=== PATIENT | male | born 1995 | race Caucasian/White ===

== ENCOUNTER 2017-04-20 21:18 | Inpatient (IN) | payer OTHER ==
--- NOTE | 2017-04-20 21:54 | EDPHY ---
H & P Stated Complaint: suicidal, cut left wrist, took 4-8 clonazepam @ 1700 - Personal History Current Tetanus/Diphtheria Vaccine: Yes Current Tetanus Diphtheria and Acellular Pertussis (TDAP): Yes - Medical/Surgical History Hx Asthma: No Hx Chronic Respiratory Disease: No Hx Diabetes: No Hx Cardiac Disease: No Hx Renal Disease: No Hx Cirrhosis: No Hx Alcoholism: No Hx HIV/AIDS: No Hx Splenectomy or Spleen Trauma: No Other PMH: hypothyroid, anxiety - Social History Smoking Status: Former smoker Time Seen by Provider: 04/20/17 21:46 HPI/ROS: CHIEF COMPLAINT: M1 HISTORY OF PRESENT ILLNESS: 21-year-old male arrives via ambulance after police were dispatched to our report of him being intoxicated, 8 stated that he has taken several Klonopin tablets of well and had lacerated his wrist in a suicide attempt. When I interview the patient he states to me "I'm just a god damned mess, let me ." Denies hallucination. REVIEW OF SYSTEMS: A ten point review of systems was performed and is negative with the exception of the items mentioned in the HPI PAST MEDICAL & SURGICAL HISTORY: self-described history of depression SOCIAL HISTORY: admits to positive alcohol use PHYSICAL EXAM (Prior to examination, patient consented to physical exam, hands were washed and my usual and customary physical exam procedures followed) 1) GENERAL: Well-developed, well-nourished, somnolent, . Appears to be in no acute distress. 2) HEAD: Normocephalic, atraumatic 3) HEENT: pinpoint pupils bilaterally . Sclera anicteric. 4) NECK: Full range of motion, no meningeal signs. 5) LUNGS: Clear auscultation bilaterally, no wheezes, no rhonchi, no retractions. 6) HEART: Regular rate and rhythm, no murmur, no heave, no gallop. 7) ABDOMEN: No guarding, no rebound, no focal tenderness, negative McBurney's, negative James's, negative Rovsing's, negative peritoneal sign, 8) MUSCULOSKELETAL: Left wrist volar aspect multiple superficial abrasions, no lacerations requiring closure. Neurovascularly intact distally. Otherwise, Moving all extremities, no focal areas of tenderness, no obvious trauma. No peripheral edema or discoloration. 9) BACK: No CVA tenderness, no midline vertebral tenderness, no fluctuance, no step-off, no obvious trauma, no visual or palpable abnormality. 10) SKIN: No rash, no petechiae. 11) Psychiatric: Patient is oriented X 3, there is no agitation. DIFFERENTIAL DIAGNOSIS: in no particular include but limited to depression, suicidal ideation, homicidal ideation (Marj,Elisa Vianey) Constitutional: Initial Vital Signs Temperature (C) 36.6 C 04/20/17 21:35 Heart Rate 115 H 04/20/17 21:35 Respiratory Rate 16 04/20/17 21:35 Blood Pressure 133/95 H 04/20/17 21:35 O2 Sat (%) 98 04/20/17 21:35 O2 Delivery Mode Room Air Allergies/Adverse Reactions: methimazole Allergy (Verified 04/21/17 09:23) Other-Enter Comments antibio Allergy (Uncoded 04/20/17 21:41) Home Medications: Medication Instructions Recorded Levothyroxine [Synthroid 175 mcg 175 mcg PO DAILY06 04/21/17 (*)] Melatonin [Melatonin 3 MG (*)] 3 mg PO HS PRN 04/21/17 clonazePAM [Klonopin (*)] 0.5 mg PO DAILY PRN 04/21/17 Medical Decision Making ED Course/Re-evaluation: 0005 care assumed by me from SANJAY triplett pending placement. [address] Gonzales pending placement. No issues during my care overnight. (Austen Rangel) I assumed care of this patient from Dr. Rangel at 7:05 a.m.. Shortly thereafter I was contacted by the mental health team and informed that the patient is being transferred to [address] [place] [address]. I have completed the EMTALA form. Time of transfer not yet available. (Destiney Gonzales) - Data Points Laboratory Results: Laboratory Results 04/20/17 21:44 04/20/17 21:44 Medications Given: Levothyroxine Sodium (Synthroid) 175 mcg PO DAILY AT 6AM TAWNY Stop: 10/18/17 04:59 Last Admin: 04/21/17 06:49 Dose: Not Given Departure - Departure Disposition: [facility] IP Clinical Impression: Suicidal ideation Condition: Good
[2017-04-20 22:02] LABS: % IMMATURE GRANULYOCYTES 0.2 % (0.0-1.1); ABSOLUTE IMMATURE GRANULOCYTES 0.01 10^3/uL (0.00-0.10); ADD DIFF? NO; ADD MORPH? NO; ADD SCAN? NO; ATYPICAL LYMPHOCYTE FLAG 10 (0-99); FRAGMENT RBC FLAG 0 (0-99); HEMATOCRIT 49.9 % (40.0-51.0); HEMOGLOBIN 17.5 g/dL (13.7-17.5); LEFT SHIFT FLG 0 (0-99); LIPEMIA HEMOLYSIS FLAG 90 (0-99); MEAN CELL HEMOGLOBIN CONCENTR. 35.1 g/dL (32.4-36.7); MEAN CELL VOLUME 88.3 fL (81.5-99.8); MEAN PLATELET VOLUME 9.8 fL (8.7-11.7); PLATELET CLUMPS FLAG 0 (0-99); PLATELET COUNT 178 10^3/uL (150-400); RED BLOOD CELL COUNT 5.65 10^6/uL (4.40-6.38); RED CELL DISTRIBUTION WIDTH 12.5 % (11.5-15.2)
[2017-04-20 22:27] LABS: ANION GAP 19 mEq/L (8-16); CALCIUM 10.7 mg/dL (8.5-10.4); CARBON DIOXIDE 21 mEq/l (22-31); CHLORIDE 103 mEq/L (97-110); CREATININE 0.8 mg/dL (0.7-1.3); ETHANOL SERUM 142 mg/dL (0-10); GLOMERULAR FILTRATION RATE > 60; GLUCOSE 72 mg/dL (70-100); SALICYLATE < 1.0 mg/dL (2.0-20.0); SODIUM 143 mEq/L (134-144)
[2017-04-21] MEDS: LEVOTHYROXINE 175 MCG TAB PO SCH ×2 (06:48→06:49)
[2017-04-21] MEDS ORDERED: OLANZapine DISINTEGR 10 MG TAB PO PRN (12:50)
[2017-04-21] MEDS ORDERED: MAG HYDROX/AL HYDROX/SIMETH 30 ML UDCUP PO PRN (12:50)
[2017-04-21] MEDS ORDERED: MAGNESIUM HYDROXIDE 30 ML UDCUP PO PRN (12:50)
[2017-04-21] MEDS ORDERED: LORazepam 0.5 MG TAB PO PRN (12:50)
[2017-04-21] MEDS ORDERED: ZOLPIDEM TARTRATE 5 MG TAB PO PRN (14:28)
[2017-04-21] MEDS ORDERED: hydrOXYzine HCL 25 MG TAB PO PRN (14:29)
--- NOTE | 2017-04-21 15:09 | BCON ---
[f rep st] [facility] CONSULTATION INTERNAL MEDICINE CONSULT DATE OF CONSULTATION: 04/21/2017 REFERRING PHYSICIAN: Mukund Flores MD REASON FOR REFERRAL: Medical clearance for Inpatient [facility] stay. HISTORY OF PRESENT ILLNESS: This patient was brought to the emergency department by police. He was found intoxicated. He had superficial lacerations on his wrist, and he had taken overdose of clonazepam. He was evaluated in the emergency department and transferred to Inpatient [facility] for further psychiatric care. He currently is without any acute complaints. PAST MEDICAL HISTORY: 1. Hypothyroidism, status post radioactive ablation for hyperthyroidism. 2. Autoimmune atrophic gastritis. PAST SURGICAL HISTORY: He reports he has had a mole removal. SOCIAL HISTORY: He lives alone. He has been a student, but it is unclear whether or not he is currently in school. He is not working. He is a nonsmoker. He uses alcohol. FAMILY HISTORY: He reports a family history of thyroid disease. REVIEW OF SYSTEMS: He denies any signs or symptoms of alcohol withdrawal. Specifically, he denies sweats or shakes. He says he has a headache. He denies fevers or chills, cough, dyspnea, nausea, vomiting, constipation or diarrhea. He reports he has had weight loss over the last several months. He denies dysuria or urinary frequency. He denies joint swelling or joint pain. He denies skin rash or skin breakdown. Otherwise, a 10-point review of systems is negative. PHYSICAL EXAM: VITAL SIGNS: Blood pressure is 143/62, pulse is 87, respiratory rate is 15, oxygen saturation is 100% on room air, temperature is 36.8 degrees centigrade. His weight is 72.6 kg for a body mass index of 23. GENERAL: This is a well-nourished, well-developed man, appears his chronologic age, cooperative and in no acute distress. HEENT: Extraocular movements are intact. Pupils are round and reactive to light. He has mild exophthalmos. Mucous membranes are moist. Dentition is in good condition. NECK: Supple. HEART: There is a regular rate and rhythm with no murmurs, rubs or gallops. LUNGS: Clear to auscultation bilaterally. ABDOMEN: Soft, nontender, nondistended; with normoactive bowel sounds. EXTREMITIES: There is no cyanosis , clubbing or edema. NEUROLOGIC: He is alert and oriented x3. Cranial nerves 2-12 are grossly intact. There is no focal weakness. Sensation is intact to light touch, and gait is within normal limits. LABORATORY STUDIES: Drawn in the emergency department: CBC was completely within normal limits. Serum chemistry revealed a low carbon dioxide and an anion gap of 19, which was likely due to alcohol intoxication. His calcium was slightly elevated at 10.7. His TSH was normal at 2.05. Toxicology screen in the serum was negative for salicylates and acetaminophen. Ethyl alcohol level was elevated at 142 mg/dL. Urine toxicology screen was negative for substances of abuse. ASSESSMENT AND RECOMMENDATIONS: 1. Mental health issues. Pending further evaluation and management per Psychiatry and the mental health team. 2. Hypothyroidism. With a normal thyroid stimulating hormone and no signs or symptoms of hyperthyroidism or hypothyroidism at present. 3. Autoimmune atrophic gastritis. He reports that he is on a high dose of levothyroxine because of difficulties with absorption of the medication due to the gastritis. This may also be involved in his recent weight loss. He may have achlorhydria, and this should be taken into account in terms of psychiatric medications and whether they require an acid environment in the stomach to be adequately absorbed. Otherwise, he should have surveillance endoscopy in the future because of the risk of transformation to gastric carcinoma, which is approximately 1% to 3%. 4. Elevated blood pressure. This is an isolated finding. He has had several blood pressure determinations. Advised continuing to monitor blood pressure and query whether he has a low level of alcohol withdrawal. 5. Alcohol use disorder. He may benefit from specific substance abuse counseling. 6. Superficial lacerations. These will heal, and there is no intervention necessary. I see no medical contraindications to this patient's continued stay in the Inpatient Behavioral Health Unit or to any psychiatric medications or procedures. Thank you very much for including me in the care of this patient, and please do not hesitate to contact me or the hospitalist service should there be need for further medical evaluation. /[id number]/MODL MTDD
--- NOTE | 2017-04-21 15:29 | BAPA ---
[f rep st] ADMISSION PSYCHIATRIC ASSESSMENT DATE OF SERVICE: 04/21/2017 CHIEF COMPLAINT: The patient is a 21-year-old male whose chief complaint to me today is, "I do not completely remember." HISTORY OF PRESENT ILLNESS: The patient is a 21-year-old male, who tells me this is his 1st psychiatric hospital stay. He took an overdose of Klonopin and cut on his wrist in a suicide attempt. At this point in time, we have minimal collateral information. We believe that Mr. Hunt was at his home, and his roommates called emergency services workers, and the police arrived, took him to the local emergency room on a 72-hour mental health hold for an evaluation. He was evaluated and thought to be appropriate for admission to the inpatient psychiatric unit. He admits to me, "I took some of my anxiety medication." This was mainly clonazepam. He also drank alcohol while he was taking this benzodiazepine. He is not able to tell me why he was trying to kill himself. He does admit, "I was feeling crappy all day." He has had some recent stressors. He is from [place], but living in [place] and was attending the [employer]. He relates that he had to withdraw from the [employer] because of poor grades. He says he is taking an art history class at [employer] and trying to retroactively drop some of his classes in which he obtained poor grades so that he can get back into school. He admits to a psychiatric history, but is unclear exactly what is being treated. He admits to being diagnosed with learning disabilities, both dyslexia and attention deficit disorder in the past. He identifies his main problems as anxiety. At one point, he tells me, "I get anxious when I am around other people, or when I am alone." He has a hard time naming a period of time where he is not anxious. He admits that he can get down in the dumps and blue, but cannot name any period of time where his depressed mood has lasted several weeks in a row. He admits that he has heard the term bipolar mood disorder in the past and thinks he may have been diagnosed with bipolar mood disorder in the past. However, he also cannot relate to me any particular time where he has had an elevated mood lasting a week or more or gotten in significant trouble because of his elevated mood. As already mentioned, he took an overdose of clonazepam. He also tells me that he used a kitchen knife to try and cut on his left arm. He has several superficial scratches on his left arm. None of these seem to draw any blood. He denies that he is suicidal at this point in time. He does not remember taking an overdose of clonazepam. He relates that he had been drinking a lot at that point in time, but is not able to quantify how much he was drinking or what he was drinking. He says he does not usually use alcohol. CURRENT REVIEW OF SYSTEMS: He admits his mood is currently down. He admits that he has poor sleep, at one point telling me, "I do not sleep." He tells me that he sometimes goes several days without sleeping until he crashes and sleeps for a prolonged period of time. He has low energy. He has poor concentration. His appetite goes up and down. He denies ongoing suicidal thinking at this point in time. He denies any desire to hurt other people. He denies any auditory or visual hallucinations. He denies feeling paranoid. He does admit to feeling anxious at this time with anxiety about his current situation as well as about his future. SOCIAL HISTORY: He denies tobacco use. He admits to having 2 alcoholic drinks per month on average. However, he readily admits that he drank heavily on the day he tried to kill himself. He tells me he smokes marijuana twice per month. He says he has used ecstasy once. He admits to using cocaine 3 times. +He says he has had periods where he would abuse methamphetamines. PAST MEDICAL HISTORY: He admits to being hypothyroid. He has a history of Graves' disease. CURRENT MEDICATIONS: Clonazepam and levothyroxine. His levothyroxine dose is 0.175 mg daily. He admits he takes multiple supplements, especially at night to help with sleep. ALLERGIES: He has an allergy to methimazole. PAST PSYCHIATRIC HISTORY: He relates that he has been diagnosed with learning disabilities including dyslexia and attention deficit disorder in the past. He has been diagnosed with anxiety problems and endorses hearing the term bipolar mood disorder in the past and thinks he has been diagnosed with this as well. MENTAL STATUS EXAMINATION: He is awake and alert after I arouse him from a nap. He sits up to talk to me. He makes poor eye contact during the interview , mostly looking away. His answers to my questions are vague and impressionistic and lack in detail. He seems to have slow responses to my questions, and it is not clear to me if he is responding to internal stimuli or if he is thinking through his answers before he makes them. His speech is fluent. The content of his speech is normal. His speech is not pressured nor is it rapid. He does not appear to respond to internal stimuli through most of the interview. His insight and judgment are both poor. He does have several lacerations on his left arm. IMPRESSION: The patient is a 21-year-old male with an odd presentation. He does not appear to be classically depressed, but has had periods of low mood and does have multiple symptoms of depression. I do think a mood issue is present. I wonder if this could be a bipolar depression. His main complaint is of anxiety and yet he actually seems remarkably un- anxious during the interview with me. No doubt collateral information will be very helpful. He also has thyroid disease with a history of Graves' disease, treated with medications as well as possibly with radioactive iodine. He is on high doses of levothyroxine replacement, higher than I would expect for his weight. He tells me he has been diagnosed with autoimmune atrophic gastritis in the past. He may have a type of malabsorption. I also wonder about adherence to treatment recommendations. We will admit him to the inpatient psychiatric unit. We will try and collect collateral information, which is likely to be very helpful. He is on a 72-hour mental health hold which expires 04/23/2017 at 2040. I will try to keep the clonazepam to a minimum, and consider tapering off. I will use a dose of olanzapine at bedtime to see if this helps improve his sleep and reduce anxiety during the day. I also strongly urge sobriety from alcohol and medications. We will talk about followup care over time. DIAGNOSES: 1. Mood disorder, not otherwise specified, possible bipolar depression. 2. Anxiety, not otherwise specified. Consider generalized anxiety disorder. 3. History of attention deficit disorder and dyslexia. 4. Hypothyroidism, on a higher than anticipated dose of levothyroxine, possibly indicating poor absorption. 5. Substance abuse. 6. Consider cluster B Personality Disorder PLAN: 1. Admit on a 72-hour mental health hold which expires 04/23 at 2040. 2. Start low dose of clonazepam and consider tapering off. 3. Olanzapine at bedtime to try and help with sleep and improve anxiety the next day. 4. Consider lithium carbonate. 5. Collect collateral information. 6. Engage in safety planning. 7. Advise sobriety. /[id number]/MODL MTDD
[2017-04-21] MEDS ORDERED: OLANZapine DISINTEGR 10 MG TAB PO SCH (21:00)
[2017-04-21] MEDS: clonazePAM 0.5 MG TAB PO SCH (22:12)
[2017-04-22] MEDS: ACETAMINOPHEN 325 MG TAB PO PRN ×2 (00:25→15:52)
[2017-04-22] MEDS: clonazePAM 0.5 MG TAB PO SCH ×2 (09:00→20:13)
[2017-04-22] MEDS: LEVOTHYROXINE 175 MCG TAB PO SCH (09:00)
--- NOTE | 2017-04-22 14:35 | SOAPPROG ---
SOAP Progress Note Assessment/Plan: Assessment: Mood Disorder, likely Bipolar 2 Current episode depressed Trying olanzapine. Consider lithium carbonate or another mood stabilizer Plan: Increase olanzapine to 15 mg HS 04/22/17 14:37 Subjective: "Not recently." Reports poor sleep last night but sleep record shows 9 hours of sleep last night. Suggests sleep state misperception. Attempted to discuss this with patient, but he lacked the insight to admit that he might have slept more than he thinks. Denies SI today. Thought content still impressionistic and lacking in detail. Can not tell me why he tried to kill himself. Does not recall events that precipitated admission. Objective: Vital Signs Temp Pulse Resp BP Pulse Ox 36.5 C 73 14 125/86 H 98 04/22/17 06:00 04/22/17 06:00 04/22/17 06:00 04/22/17 06:00 04/22/17 06:00 Medications Generic Name Dose Route Start Last Admin Trade Name Freq PRN Reason Stop Dose Admin Clonazepam 0.5 mg 04/21/17 21:00 04/22/17 09:00 Klonopin PO 10/18/17 20:59 0.5 mg BID [facility] Levothyroxine Sodium 175 mcg 04/22/17 10:00 04/22/17 09:00 Synthroid PO 10/18/17 04:59 175 mcg DAILY@1000 TAWNY Olanzapine 10 mg 04/21/17 21:00 04/21/17 22:13 Zyprexa Zydis PO 10/18/17 20:59 Not Given HS [facility] MSE Awake, alert, cooperative with me Casually dressed, reasonably well groomed speech normal in rate and tone thought content remains impressionistic and lacking in detail Lacks insight and judgment ICD10 Worksheet Patient Problems: Problems Problem Status Onset Suicidal ideation Acute
[2017-04-22] MEDS ORDERED: ZOLPIDEM TARTRATE 5 MG TAB PO PRN (15:52)
[2017-04-22] MEDS: OLANZapine DISINTEGR 10 MG TAB PO SCH (20:13)
[2017-04-23] MEDS: LEVOTHYROXINE 175 MCG TAB PO SCH ×2 (08:59→09:07)
[2017-04-23] MEDS: clonazePAM 0.5 MG TAB PO SCH ×2 (10:32→21:17)
--- NOTE | 2017-04-23 12:37 | SOAPPROG ---
SOAP Progress Note Assessment/Plan: Assessment: Mood Disorder, likely Bipolar 2 (vs MDD, or adjustment disorder with depressed mood) Current episode depressed Trying olanzapine. Consider lithium carbonate or another mood stabilizer Consider adding fluoxetine or another SRI Plan: Discontinue clonazepam Continue olanzapine STC, lacks insight and judgment needed to participate in treatment voluntarily 04/23/17 12:37 Subjective: "It's a good day." "I think my dad is coming to town." Slept 5.5 hours. Reports he fell asleep well, but had AM wakening and difficulty getting back to sleep. Mood is better today. Denies SI. Poor sleep. Energy good. Concentration good. Appetite good. Has left chest skin lesion, possible ringworm. Objective: Vital Signs Temp Pulse Resp BP Pulse Ox 36.4 C 74 16 133/94 H 97 04/23/17 03:52 04/23/17 03:52 04/23/17 03:52 04/23/17 03:52 04/23/17 03:52 Medications Generic Name Dose Route Start Last Admin Trade Name Mindy PRN Reason Stop Dose Admin Clonazepam 0.25 mg 04/22/17 15:52 04/23/17 10:32 Klonopin PO 10/18/17 20:59 Not Given BID TAWNY Levothyroxine Sodium 175 mcg 04/22/17 10:00 04/23/17 08:59 Synthroid PO 10/18/17 04:59 175 mcg DAILY@1000 TAWNY Olanzapine 15 mg 04/22/17 14:38 04/22/17 20:13 Zyprexa Zydis PO 10/18/17 20:59 Not Given HS TAWNY MSE Awake, alert, cooperative, more relaxed today Speech normal in rate and tone Thought processes linear today, more interactive today, able to express himself better Insight/judgment poor to fair ICD10 Worksheet Patient Problems: Problems Problem Status Onset Suicidal ideation Acute
--- NOTE | 2017-04-23 13:29 | BLETTER ---
April 23, [address] [place], [place] RE: Short-term certification of Shabbir Hunt (1995). Honorable Provider Relations Manager: Mr. Shabbir Hunt is a 21-year-old white male who was admitted to [facility]'s inpatient psychiatric unit on a 72-hour mental health hold after he had attempted suicide by drinking excessive amounts of alcohol, overdosing on his medications, and attempting to cut his wrists. Mr. Hunt has been minimally cooperative with treatment. His expression of his desire to has decreased, but he continues to lack the insight and judgment needed to participate in his treatment decisions. In my opinion, Mr. Hunt remains potentially dangerous to himself and lacks the insight and judgment needed to participate in voluntary treatment at this point in time. He is agreeing to voluntary treatment, but reasonable grounds exist to believe he will not remain in voluntary treatment. He does not recognize his impairment or the need for his treatment. He is being read his rights and receiving a copy of the certification. Respectfully yours, MTDElisa
[2017-04-23] MEDS: KETOCONAZOLE 2% 15 GM CREAM TP SCH (15:47)
[2017-04-23] MEDS: OLANZapine DISINTEGR 10 MG TAB PO SCH (21:16)
[2017-04-24 07:57] VITALS: BP 94/60; PULSE 43; RESP 14; TEMP 97.3; O2SAT 98
[2017-04-24] MEDS: KETOCONAZOLE 2% 15 GM CREAM TP SCH (11:14)
[2017-04-24] MEDS: LEVOTHYROXINE 175 MCG TAB PO SCH (11:15)
[2017-04-24] MEDS: clonazePAM 0.5 MG TAB PO SCH (11:15)
[2017-04-24] MEDS ORDERED: OLANZapine DISINTEGR 10 MG TAB PO SCH (12:06)
--- NOTE | 2017-04-24 14:00 | BDS ---
[f rep st] BEHAVIORAL HEALTH DISCHARGE SUMMARY DISCHARGE DIAGNOSES: 1. Adjustment disorder with depressed mood. 2. Alcohol abuse. 3. Postprocedure hypothyroidism. 4. Poor absorption of levothyroxine. PROCEDURES: None. COMPLICATIONS: None. BRIEF REVIEW OF CASE: Mr. Hunt is a 21-year-old male who was admitted for his first inpatient psychiatric hospitalization after taking an overdose of clonazepam and drinking alcohol. As I understood the story from him, he has been dealing with a significant amount of stress over the past several months. Over the several days of his admission, we re-explored his stressors, and he admitted that he has been performing poorly in college, in part because he is not sure whether he wants to be in school, or at least he is not sure what he wants to study in school at this point in time. He built up a picture of feeling that he was being forced to be in school and take some classes that he was not particularly interested in. He reacted in a passive-aggressive manner and performed poorly, eventually flunking out of the [employer] [employer]. He also has some underlying anxiety, which appears to be generalized anxiety disorder with largely anxiety about his future and what he is going to do over time. He could not identify any particular acute stressor. He was never clear about exactly when he had learned that he was going to have to drop out of and enroll in [employer] as this seems to be a big stressor for him. At any rate, he became acutely despondent, took several clonazepam that he had for as needed use for his anxiety, and drank a lot of alcohol. In fact, he drank so much alcohol that he says he passed out. He is not sure how much alcohol he drank. He knows he sent a text message to a friend because he was able to review the text messages in his cellphone. The text message had alarming information for the friend who contacted emergency services workers. Emergency services workers found the patient at his apartment and brought him to the emergency room. It was clear that this was a suicide attempt. He did expect to . He was inebriated as part of his suicide attempt. It is not clear how much of the inebriation preceded his decision to . He is very unclear on this point. At any rate, he was admitted on a 72-hour mental health hold to our inpatient psychiatric unit. On our unit, we interviewed him on admission and every day afterwards. He was initially very vague about his recent history, but over time, possibly because he came to trust us or possibly because the alcohol and drugs were leaving his system, he became more forthcoming about his recent stresses. He gives a history of some mood fluctuations. His principal mood state has been low, but he continued to be vague and lack in detail, so it is not clear to me that he met criteria for major depressive disorder with enough associated symptoms for a long enough period of time to make this diagnosis. He had some periods of time where his mood was a little higher than normal, but not remarkably so per his history and not of enough duration to make a diagnosis of bipolar mood disorder. Thus, I am giving him an adjustment disorder with depressed mood diagnosis at the time of discharge, but I would readily acknowledge that with more history and more observation time there may well be a major depressive disorder diagnosis present and possibly even a bipolar 1 or bipolar 2 diagnosis present. The other issue that I addressed with this patient is that from his history, I suspect that he was not coping in the best way he could with this current stress. I pointed out that he was making a passive decision to flunk out of school rather than addressing the problem of getting into classes and a career path or life path that would be more appropriate for him. I pointed out that this was a passive-aggressive and immature type of coping skill. He let me know that he had been beginning to discuss this with his outpatient therapist. The other issue we addressed was alcohol. He is very clear that his alcohol use is intermittent. It was particularly heavy this one night secondary to acute factors. Nonetheless, we strongly recommended complete sobriety at least for a period of time while he was going through therapy to help with his current adjustment. He also admitted to some marijuana use but minimized this saying he was only using marijuana about two times per month. He admitted to trying Ecstasy and cocaine in the past. Again, we reiterated our suggestion of complete sobriety, particularly while he works on his current problems. Another issue that came up during this hospital stay is recurring sleep problems. He has recurring sleep problems with some difficulty initiating and some difficulty maintaining sleep. He then has a tendency to sleep in the next day, which has produced some reverse sleep-wake cycles. We addressed this too, and I recommended a regular sleep-wake cycle and, in particular, getting up in the morning at the same time, even on weekends to help maintain a normal schedule. His own medical issue is a history of Graves disease at approximately age 17. He presented hyperthyroid with significant weight loss. He had an allergic reaction to methimazole per his history. He was then treated with radioactive iodine and became permanently hypothyroid. He has poor absorption of levothyroxine and is on a higher dose of levothyroxine than we would anticipate for his weight. I was actually able to speak to his outpatient trade manager , Mukund Santamaria MD. 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 They have increased the dose of levothyroxine up to 0.175 mg, and he had a normal TSH test at his last endocrinology checkup. Our treatment during this hospital stay was to work on safety planning, try to keep anxiety under control, and approach this patient with some goal-directed therapy. We also started a dose of olanzapine at bedtime to try to help regulate the sleep-wake cycle and reduce anxiety. This combination of treatments did seem to help over the 3 days he was in the hospital. His suicidal thinking ameliorated completely. He was able to talk about the future in a positive and forward-looking manner. He was able to cite his family as a positive support and a reason why he would not commit suicide. He slept better , had better energy during the day, good concentration, and his mood returned to normal. His anxiety was under reasonable control as well. Thus, by the end of the hospital stay, correctable risks for dangerousness had all improved, and I assess his dangerousness risk as minimal at the time of discharge. DISCHARGE PLAN: For the patient to return to his home in [place] with his family where he already has a therapist and will see a psychiatrist. The family has a good support system in place. We had a family meeting prior to discharge at which all parties agreed that this was an appropriate plan. His medications at discharge include levothyroxine 0.175 mg daily and 5 mg of olanzapine to take for 2 weeks to try and help improve his sleep at night and keep his anxiety under control. We are discontinuing clonazepam. I have also encouraged sobriety as I have already mentioned. It was a pleasure taking care of this patient, and we hope he does well after discharge. /[id number]/MODL MTDD
== END 2017-04-24 14:02 | disposition home or self-care (01) | DRG 881 ==
LOC: BBEH 04-21 12:15
PROVIDERS: ADMIT Psychiatry & Neurology Psychiatry; ATTEND Psychiatry & Neurology Psychiatry
DX: F43.21 Adjustment disorder with depressed mood (principal); T42.4X2A Poisoning by benzodiazepines, intentional self-harm, initial encounter; F10.10 Alcohol abuse, uncomplicated; E89.0 Postprocedural hypothyroidism; K29.40 Chronic atrophic gastritis without bleeding
CPT/HCPCS: 80305; G0480